=== PATIENT | female | born 1940 | race Two or more races ===

== ENCOUNTER 2017-12-06 13:46 | Outpatient (CLI) | payer OTHER ==
[~2017-12-06 13:46] MED LIST: AURALGAN OTIC S14 ML OT; DICLOFENAC POTA50 MG PO; DIFLUCAN 100 MG PO; TEMOVATE45 GM TP
== END 2017-12-06 14:00 | disposition home or self-care (01) ==
LOC: NUCLEAR 13:46
DX: I87.2 Venous insufficiency (chronic) (peripheral) (principal); I82.493 Acute embolism and thrombosis of other specified deep vein of lower extremity, bilateral

== ENCOUNTER 2018-05-30 14:17 | Outpatient (CLI) | payer OTHER | END 2018-05-30 14:22 | disposition home or self-care (01) | LOC: MAMO-SONO 14:17 | DX: Z12.31 Encounter for screening mammogram for malignant neoplasm of breast (principal); Z87.898 Personal history of other specified conditions; Z78.0 Asymptomatic menopausal state; R92.2 Inconclusive mammogram; Z80.3 Family history of malignant neoplasm of breast; R10.2 Pelvic and perineal pain ==

== ENCOUNTER 2019-06-12 14:59 | Outpatient (CLI) | payer OTHER | END 2019-06-12 15:09 | disposition home or self-care (01) | LOC: MAMO-SONO 14:59 | DX: Z12.31 Encounter for screening mammogram for malignant neoplasm of breast (principal); Z87.898 Personal history of other specified conditions; N64.4 Mastodynia; N63.10 Unspecified lump in the right breast, unspecified quadrant; N63.20 Unspecified lump in the left breast, unspecified quadrant; Z78.0 Asymptomatic menopausal state; N95.1 Menopausal and female climacteric states; N60.12 Diffuse cystic mastopathy of left breast; N60.11 Diffuse cystic mastopathy of right breast; R10.2 Pelvic and perineal pain ==

== ENCOUNTER 2020-05-20 18:46 | Inpatient (IN) | payer OTHER ==
[~2020-05-20] VITALS: Ht 160 cm; Wt 63.5 kg
--- NOTE | 2020-05-20 18:57 | NUR ---
SE RTECIBE PACIENTE ALERTA Y ORIENTADA, HIJO REFIERE QUE EN CONTRO A PACIENTE EN EL SUELO EN LA TARDE DE HOY. PACIENTE REFIERE EN LA MANANA PERDIO EL BALCE DE [place] PIERNA DERECHA Y SE CALLO REFIERE SE LASTIMO PIERNA DERECHA Y ESPALDA.
--- NOTE | 2020-05-20 20:25 | NUR ---
EVALUA PTE. SE ORIENTA A PTE SOBRE [place] MEDICO. PTE REFIERE COMPRENDER. SE COLECTAN MUESTRAS DE LABORATORIO BAJO MEDIDAS ASEPTICAS. SE ADMINISTRA IV'S SHIRLEY ORDEN MEDICA. SE NOTIFICA CT Y THOMAS X. PTE MANEJADO POR .
--- NOTE | 2020-05-20 23:18 | NUR ---
SE RECIBE PTE ALERTA Y ORIENTADA X3 EN JACKELINE CON BARANDAS ELEVADAS. PTE CON H/L EL CUAL SE ENCUENTRA PATENTE Y BRENNAN DE EDEMA. PTE CON IV FLUIDS COLOCADO. PTE CONSULTADA CON MEDICINA INTERNA. PTE SE CONTINUA MONITORIANDO POR CAMBIOS.
--- NOTE | 2020-05-21 07:13 | NUR ---
SE RECIBE PTE LA CUAL SE ENCUENTRA EN JACKELINE LA MISMA PRESENTA AREA DE VENOPUNCION PATENTE Y BRENNAN DE EDEMA 0.45NSS AT 150ML/HR, LA MISMA SE ENCUENTRA PEND A RESULTADOS DE LAB Y CONSULTA CON DR. MARTINEZ.
[2020-05-28] MEDS ORDERED: NORVASC5 MG PO (13:33)
== END 2020-05-28 14:32 | disposition home or self-care (01) | DRG 312 ==
LOC: ER 18:46 → SEC-K 05-21 08:55 → MEDI 05-21 11:19
PROVIDERS: ADMIT Internal Medicine; ATTEND Internal Medicine
PROC: BW28ZZZ Computerized Tomography (CT Scan) of Head (ICD-10-PCS; principal; 2020-05-21)
PROC: B030ZZZ Magnetic Resonance Imaging (MRI) of Brain (ICD-10-PCS; 2020-05-21)
PROC: 4A12X4Z Monitoring of Cardiac Electrical Activity, External Approach (ICD-10-PCS; 2020-05-21)
PROC: B54BZZZ Ultrasonography of Right Lower Extremity Veins (ICD-10-PCS; 2020-05-23)
DX: R55 Syncope and collapse (principal); L03.115 Cellulitis of right lower limb; Z20.828 Contact with and (suspected) exposure to other viral communicable diseases; F32.89 Other specified depressive episodes; I87.2 Venous insufficiency (chronic) (peripheral); W18.39XA Other fall on same level, initial encounter; B35.3 Tinea pedis
CPT/HCPCS: 70551

== ENCOUNTER 2020-05-30 12:04 | Emergency (ER) | payer OTHER ==
[~2020-05-30] VITALS: Ht 152.4 cm; Wt 63.0 kg
[~2020-05-30 12:04] MED LIST changes: +NORVASC5 MG PO
[2020-05-30] MEDS ORDERED: INTESTINEX680 M1 PO (16:26)
[2020-05-30] MEDS ORDERED: DOXYCYCLINE HY100 MG PO (16:26)
== END 2020-05-30 17:04 | disposition home or self-care (01) ==
LOC: ER 12:04
DX: L03.115 Cellulitis of right lower limb (principal)

== ENCOUNTER 2020-06-13 13:01 | Outpatient (CLI) | payer OTHER ==
[~2020-06-13 13:01] MED LIST changes: +DOXYCYCLINE HY100 MG PO; +INTESTINEX680 M1 PO
== END 2020-06-13 13:18 | disposition home or self-care (01) ==
LOC: NUCLEAR 13:01
PROVIDERS: ATTEND Obstetrics & Gynecology Gynecology
DX: M81.0 Age-related osteoporosis without current pathological fracture (principal); N95.1 Menopausal and female climacteric states; Z13.820 Encounter for screening for osteoporosis

== ENCOUNTER 2020-09-24 11:00 | Outpatient (CLI) | payer OTHER | END 2020-09-24 11:29 | disposition home or self-care (01) | LOC: MRI 11:00 | PROVIDERS: ATTEND Physical Medicine & Rehabilitation | DX: M51.37 Other intervertebral disc degeneration, lumbosacral region (principal); M51.27 Other intervertebral disc displacement, lumbosacral region; M48.07 Spinal stenosis, lumbosacral region | CPT/HCPCS: 72148 ==

== ENCOUNTER → 2021-01-23 | Outpatient (CLI) | payer OTHER | END | disposition home or self-care (01) | LOC: MRI 10:03 | PROVIDERS: ATTEND Psychiatry & Neurology Neurology | DX: R41.3 Other amnesia (principal); M25.551 Pain in right hip; M25.552 Pain in left hip; M54.5 Low back pain | CPT/HCPCS: 70551; 72148 ==

== ENCOUNTER 2021-02-09 10:10 | Outpatient (CLI) | payer OTHER | END 2021-02-09 10:53 | disposition home or self-care (01) | LOC: MAMO-SONO 10:10 | PROVIDERS: ATTEND Obstetrics & Gynecology Gynecology | DX: Z12.31 Encounter for screening mammogram for malignant neoplasm of breast (principal); Z87.898 Personal history of other specified conditions; N60.11 Diffuse cystic mastopathy of right breast; N60.12 Diffuse cystic mastopathy of left breast; N64.4 Mastodynia; N63.0 Unspecified lump in unspecified breast ==

== ENCOUNTER 2021-04-28 08:03 | Outpatient (CLI) | payer OTHER | END 2021-04-28 08:04 | disposition home or self-care (01) | LOC: NUCLEAR 08:03 | PROVIDERS: ATTEND Internal Medicine Cardiovascular Disease | DX: I25.10 Atherosclerotic heart disease of native coronary artery without angina pectoris (principal) | CPT/HCPCS: 78452; 93017; A9500 ==

== ENCOUNTER → 2021-05-18 10:01 | Outpatient (CLI) | payer OTHER | END | disposition home or self-care (01) | LOC: LAB 10:01 | PROVIDERS: ATTEND Family Medicine | DX: G12.21 Amyotrophic lateral sclerosis (principal); R29.0 Tetany; K30 Functional dyspepsia; R60.0 Localized edema; R20.2 Paresthesia of skin; L29.8 Other pruritus; I83.009 Varicose veins of unspecified lower extremity with ulcer of unspecified site ==

== ENCOUNTER 2021-05-29 10:04 | Outpatient (CLI) | payer OTHER | END 2021-05-29 10:13 | disposition home or self-care (01) | LOC: NUCLEAR 10:04 | PROVIDERS: ATTEND Physical Medicine & Rehabilitation | DX: I87.2 Venous insufficiency (chronic) (peripheral) (principal) ==

== ENCOUNTER → 2021-06-10 09:55 | Outpatient (CLI) | payer OTHER | END | disposition home or self-care (01) | LOC: LAB 09:55 | PROVIDERS: ATTEND Internal Medicine | DX: D64.89 Other specified anemias (principal); E11.9 Type 2 diabetes mellitus without complications; N39.0 Urinary tract infection, site not specified; E03.8 Other specified hypothyroidism; E78.00 Pure hypercholesterolemia, unspecified; Z12.11 Encounter for screening for malignant neoplasm of colon; R19.5 Other fecal abnormalities; R80.8 Other proteinuria; L03.115 Cellulitis of right lower limb ==

== ENCOUNTER 2021-10-01 09:29 | Outpatient (CLI) | payer OTHER | END 2021-10-01 09:42 | disposition home or self-care (01) | LOC: MRI 09:29 | PROVIDERS: ATTEND Family Medicine | DX: G12.21 Amyotrophic lateral sclerosis (principal); R26.89 Other abnormalities of gait and mobility; M48.062 Spinal stenosis, lumbar region with neurogenic claudication | CPT/HCPCS: 72158 ==

== ENCOUNTER 2021-10-01 10:42 | Outpatient (CLI) | payer OTHER | END 2021-10-01 10:48 | disposition home or self-care (01) | LOC: LAB 10:42 | PROVIDERS: ATTEND Radiology Diagnostic Radiology | DX: G12.21 Amyotrophic lateral sclerosis (principal) ==

== ENCOUNTER 2022-06-03 14:16 | Emergency (ER) | payer OTHER ==
[~2022-06-03] VITALS: Ht 157.5 cm; Wt 65.8 kg
[2022-06-03] MEDS ORDERED: ARICEPT5 MG PO (14:47)
[2022-06-03] MEDS ORDERED: MEMANTINE HCL10 MG PO (14:48)
[2022-06-03] MEDS ORDERED: HORIZANT300 MG PO (14:48)
[2022-06-03] MEDS ORDERED: CHLORTHALIDONE25 MG PO (14:49)
[2022-06-03] MEDS ORDERED: LOSARTAN-HCTZ1 EACH PO (14:49)
[2022-06-03] MEDS ORDERED: GLUMETZA500 MG PO (14:50)
[2022-06-03] MEDS ORDERED: LASIX20 MG PO (14:50)
[2022-06-03] MEDS ORDERED: PEPCID AC20 MG PO (22:34)
== END 2022-06-03 22:44 | disposition home or self-care (01) ==
LOC: ER 14:16
DX: K29.70 Gastritis, unspecified, without bleeding (principal); K76.89 Other specified diseases of liver; K57.30 Diverticulosis of large intestine without perforation or abscess without bleeding; E11.9 Type 2 diabetes mellitus without complications; Z79.84 Long term (current) use of oral hypoglycemic drugs; I10 Essential (primary) hypertension

== ENCOUNTER 2022-08-09 15:02 | Emergency (ER) | payer OTHER ==
[~2022-08-09] VITALS: Ht 157.5 cm; Wt 65.8 kg
[~2022-08-09 15:02] MED LIST changes: +ARICEPT5 MG PO; +CHLORTHALIDONE25 MG PO; +GLUMETZA500 MG PO; +HORIZANT300 MG PO; +LASIX20 MG PO; +LOSARTAN-HCTZ1 EACH PO; +MEMANTINE HCL10 MG PO; +PEPCID AC20 MG PO
[2022-08-09] MEDS ORDERED: PEPCID20 MG PO (18:42)
[2022-08-09] MEDS ORDERED: ONDANSETRON ODT8 MG PO (18:42)
== END 2022-08-09 19:07 | disposition home or self-care (01) ==
LOC: ER 15:02
DX: K29.70 Gastritis, unspecified, without bleeding (principal); R11.2 Nausea with vomiting, unspecified; Z20.822 Contact with and (suspected) exposure to COVID-19

== ENCOUNTER 2023-04-19 19:28 | Inpatient (IN) | payer OTHER ==
[~2023-04-19] VITALS: Ht 152.4 cm; Wt 61.2 kg
[~2023-04-19 19:28] MED LIST changes: +ONDANSETRON ODT8 MG PO; +PEPCID20 MG PO
[2023-04-19] MEDS ORDERED: SERTRALINE HCL50 MG (19:44)
[2023-04-19] MEDS ORDERED: ARICEPT10 MG (19:44)
[2023-04-19] MEDS ORDERED: ZOLOFT50 MG (19:44)
[2023-04-19] MEDS ORDERED: ELIQUIS5 MG (19:44)
--- NOTE | 2023-04-19 19:44 | NUR ---
SE RECIBE PACIENTE ALERTA EN COMPANIA DE FAMILIAR EL CUAL INDICA QUE PTE DESDE HOY PRESENTA FIEBRE, DEBILIDAD, NO PUEDE HABLAR NI CAMINAR. PTE LLEGA A ER EN AMBULANCIA.
--- NOTE | 2023-04-19 21:58 | NUR ---
PACIENTE EVALUADA POR DR AVINASH CANTUIEN [place] MED[place], ELENA COX LE ORIENTA A PACIENTE SOBRE EL MISMO Y VERBALIZA ENTENDER. LE COLECTA MUESTRAS Y LE CANALIZA BAJO MEDIDAS ASEPTICAS. LE ADM MED SHIRLEY ORDEN Y LE HACE ENTREGA A PACIEENTE ENVASE PARA COLECTA DE U/A Y U/A PENDIENTE. PEND ESTUDIO DE THOMAS X
--- NOTE | 2023-04-20 00:13 | NUR ---
SE RECIBE PTE ALERTA EN PERSONA EN JACKELINE CON BARABDAS ELEVADAS POR NEWMAN SEGURIDAD EN COMPANIA DE FAMILIAR.VENOPUNCION PATENTE BRENNAN DE EDEMA Y ERITEMA RECIBIENDO 0.9 NSS BAJANDO A 150ML/HR PENDIENTE U/A Y U/C SE ORIENTA PTE SOBRE STEPHANY DE MUESTRA PENDIENTE DE ENTREGA TUBO DE MUESTRA A FAMILIAR.SE ASISTE EN CAMBIO DE ROPA.
--- NOTE | 2023-04-20 07:18 | NUR ---
SE RECIEB TPTE EN CAMIALLIA CON BARANDAS ELVADAS POR NEWMAN SEGURIDAD. PENDIENTE A RE-EVAL. VENOPUNCION PATENTE
== END 2023-04-27 13:55 | disposition home or self-care (01) | DRG 603 ==
LOC: ER 19:28 → SEC-K 04-20 13:09 → MEDJ 04-20 13:09
PROVIDERS: Emergency Medicine; Internal Medicine; ADMIT Internal Medicine; ATTEND Internal Medicine
PROC: B54BZZZ Ultrasonography of Right Lower Extremity Veins (ICD-10-PCS; principal; 2023-04-20)
DX: L03.115 Cellulitis of right lower limb (principal); I82.4Z1 Acute embolism and thrombosis of unspecified deep veins of right distal lower extremity; N39.0 Urinary tract infection, site not specified; E80.6 Other disorders of bilirubin metabolism; E11.9 Type 2 diabetes mellitus without complications; Z79.4 Long term (current) use of insulin; E66.9 Obesity, unspecified; Z68.26 Body mass index [BMI] 26.0-26.9, adult; G30.9 Alzheimer's disease, unspecified; F02.80 Dementia in other diseases classified elsewhere, unspecified severity, without behavioral disturbance, psychotic disturbance, mood disturbance, and anxiety; I10 Essential (primary) hypertension

== ENCOUNTER → 2025-03-24 | Emergency (ER) | payer OTHER ==
[~2025-03-24] VITALS: Ht 157.5 cm; Wt 49.9 kg
[~2025-03-24] MED LIST changes: +ARICEPT10 MG; +COZAAR100 MG PO; +ELIQUIS5 MG; +NEURAPTINE30 GM TP; +SERTRALINE HCL50 MG; +SERTRALINE20 MG/1 ML; +ZOLOFT50 MG
[2025-03-24 18:28] LABS: BASO % 0.9 % (0.1-1.2); EOS # 0.17 (0.04-0.54); EOS % 2.6 % (0.7-7.0); LYMPH # 2.24 (1.18-3.74); LYMPH % 34.7 % (19.3-53.1); MEAN PLATELET VOLUME 9.80 fl (9.4-12.4); MONO # 0.42 (0.24-0.82); MONO % 6.5 % (4.7-12.5); NEUT # 3.54 (1.56-6.13); NEUT % 55.0 % (34.0-71.1); RED CELL DISTRIBUTION WIDTH 12.1 % (11.6-14.4)
[2025-03-24 18:52] LABS: INR 1.0
[2025-03-24 18:57] LABS: ALT/SGPT 23.0 U/L (12-78); AST/SGOT 21.0 U/L (15-37); BILIRUBIN TOTAL 0.91 mg/dL (0.3-1.2); BUN CREA RATIO 14.0 (7.0-25.0); CREATININE SERUM 0.9 mg/dL (0.55-1.02); GFR 59.8; GLOBULINA 3.3 G/DL (2.4-3.5); GLUCOSE FASTING 112.0 mg/dL (65-100); OSMOLALITY SERUM 280.0 MOSM/KG (275-295)
== END | disposition home or self-care (01) ==
LOC: ER 16:22
PROVIDERS: General Practice
DX: R42 Dizziness and giddiness (principal); E16.2 Hypoglycemia, unspecified; I10 Essential (primary) hypertension; E11.9 Type 2 diabetes mellitus without complications; Z79.84 Long term (current) use of oral hypoglycemic drugs; R53.1 Weakness

== ENCOUNTER 2025-04-26 11:30 | Emergency (ER) | payer OTHER ==
[~2025-04-26] VITALS: Ht 157.5 cm; Wt 56.7 kg
[2025-04-26] MEDS ORDERED: ONDANSETRON HCL 2 MG/ML VIAL IV STA (12:39)
[2025-04-26] MEDS ORDERED: 0.9 % SODIUM CHLORIDE 1,000 ML IV SCH (12:45)
[2025-04-26] MEDS ORDERED: ONDANSETRON HCL 2 MG/ML VIAL ONE (13:02)
[2025-04-26 13:17] LABS: BASO % 0.7 % (0.1-1.2); EOS # 0.08 (0.04-0.54); EOS % 1.1 % (0.7-7.0); LYMPH # 0.98 (1.18-3.74); LYMPH % 13.3 % (19.3-53.1); MEAN PLATELET VOLUME 10.30 fl (9.4-12.4); MONO # 0.24 (0.24-0.82); MONO % 3.3 % (4.7-12.5); NEUT # 6.02 (1.56-6.13); NEUT % 81.5 % (34.0-71.1); RED CELL DISTRIBUTION WIDTH 12.3 % (11.6-14.4)
[2025-04-26 13:52] LABS: INR 1.12
[2025-04-26 14:00] LABS: ALT/SGPT 22.0 U/L (12-78); AST/SGOT 20.0 U/L (15-37); BILIRUBIN TOTAL 1.12 mg/dL (0.3-1.2); BUN CREA RATIO 25.0 (7.0-25.0); CREATININE SERUM 0.72 mg/dL (0.55-1.02); GFR 77.36; GLOBULINA 3.3 G/DL (2.4-3.5); GLUCOSE FASTING 154.0 mg/dL (65-100); OSMOLALITY SERUM 290.0 MOSM/KG (275-295)
[2025-04-26 16:57] LABS: URINE APPEARANCE Clear; URINE BILIRRUBIN Negative (NEGATIVE); URINE BLOOD Negative; URINE COLOR Yellow; URINE GLUCOSE Negative (NEGATIVE); URINE KETONE 15 (NEGATIVE); URINE LEUKOCYTE Negative; URINE NITRATE Negative; URINE PROTEIN Negative (NEGATIVE); URINE UROBILINOGEN 0.2 E.U./dl
[2025-04-26 17:00] LABS: URINE BACTERIA 40.7 uL (0.0-1933); URINE EPITHELIAL CELLS 3.9 uL (0.0-38.8); URINE WBC 13.3 uL (0.0-23.2)
[2025-04-26 17:03] LABS: URINE CAST 0.29 uL (0.0-1.40); URINE RBC 1.0 uL (0.0-20.8)
[2025-04-26] MEDS ORDERED: CARAFATE1 GM PO (17:49)
== END 2025-04-26 19:33 | disposition home or self-care (01) ==
LOC: ER 11:30
PROVIDERS: Emergency Medicine
DX: K29.70 Gastritis, unspecified, without bleeding (principal); I48.91 Unspecified atrial fibrillation; E11.9 Type 2 diabetes mellitus without complications; Z79.84 Long term (current) use of oral hypoglycemic drugs